=== PATIENT | male | born 1970 | race Caucasian/White ===

== ENCOUNTER 2024-10-28 21:56 | Emergency (ER) | payer BC ==
[~2024-10-28] VITALS: Ht 177.8 cm; Wt 89.2 kg
[2024-10-28 22:06] VITALS: O2SAT 98
[2024-10-28 22:13] VITALS: BP 162/98; PULSE 74; RESP 16; TEMP 36.7; O2SAT 98
[2024-10-28] MEDS: LIDOCAINE HCL 1% 20ML VIAL INFIL ONE (23:31)
== END 2024-10-29 02:35 | disposition home or self-care (01) ==
LOC: ER 21:56
DX: S01.81XA Laceration without foreign body of other part of head, initial encounter (principal); W22.09XA Striking against other stationary object, initial encounter; X58.XXXA Exposure to other specified factors, initial encounter; Y93.89 Activity, other specified; Y92.89 Other specified places as the place of occurrence of the external cause; Y99.8 Other external cause status
CPT/HCPCS: 12001; 99282; Z7610